=== PATIENT | female | born 1985 | race African-American/Black ===

== ENCOUNTER → 2017-03-26 | Outpatient (CLI) | payer OTHER ==
[~2017-03-26] MED LIST: ACYCLOVIR400 MG PO; HAIR, SKIN & N1 EACH PO
[2017-03-26 12:28] LABS: CHOLESTEROL 165 mg/dL (0-200); GLUCOSE FASTING 82 mg/dL (70-110); HDL CHOLESTEROL 53 mg/dL (35-95); LDL CHOLESTEROL 107 mg/dL (-130); LDL/HDL RATIO 2 RATIO (0-4); TRIGLYCERIDES 27 mg/dL (10-160)
== END | disposition home or self-care (01) ==
LOC: CLAB 11:19
PROVIDERS: Surgery
DX: E66.01 Morbid (severe) obesity due to excess calories (principal)
CPT/HCPCS: 36415; 80061; 82947